=== PATIENT | male | born 1955 | race Caucasian/White ===

== ENCOUNTER 2017-09-29 03:08 | Inpatient (IN) | payer BC ==
[~2017-09-29] VITALS: Ht 180.3 cm; Wt 81.6 kg
[2017-09-29] MEDS ORDERED: DABI75CA3 PO (03:29)
[2017-09-29] MEDS ORDERED: TESTOSTERONE GEL TOP (03:29)
[2017-09-29] MEDS ORDERED: NITROGLYCERIN 0.4 MG/TAB BOTTLE SL ONE ×2 (03:30→03:34)
[2017-09-29] MEDS ORDERED: PANTOPRAZOLE SODIUM 40 MG VIAL IV ONE (03:30)
[2017-09-29] MEDS ORDERED: PANTOPRAZOLE SODIUM 40 MG VIAL ONE (03:34)
[2017-09-29 03:51] LABS: BASOPHILS # (AUTO) 0.1 K/uL (0.0-8.0); BASOPHILS % (AUTO) 1.1 % (0.0-2.0); EOSINOPHILS # (AUTO) 0.1 K/uL (0.0-0.7); EOSINOPHILS % (AUTO) 1.4 % (0.0-7.0); HEMATOCRIT 44.7 % (36.7-47.1); HEMOGLOBIN 15.2 g/dL (12.5-16.3); LYMPHOCYTES # (AUTO) 1.6 K/uL (20.0-40.0); LYMPHOCYTES % (AUTO) 25.8 % (20.5-51.5); MEAN CORPUSCULAR HEMOGLOBIN 31.8 uug (23.8-33.4); MEAN CORPUSCULAR HGB CONC 34 g/dL (32.5-36.3); MEAN CORPUSCULAR VOLUME 93.4 fL (73.0-96.2); MONOCYTES # (AUTO) 0.7 K/uL (2.0-10.0); MONOCYTES % (AUTO) 10.7 % (0.0-11.0); NEUTROPHILS # (AUTO) 3.8 K/uL (1.8-8.9); PLATELET COUNT (AUTO) 182 K/uL (152-348); RED BLOOD CELL COUNT(AUTO) 4.78 MIL/uL (4.06-5.63); WHITE BLOOD COUNT (AUTO) 6.2 K/uL (3.6-10.2)
[2017-09-29] MEDS ORDERED: IV NORMAL SALINE 250 ML BAG IV ONE (04:00)
[2017-09-29 04:16] LABS: BILIRUBIN,DIRECT 0.1 mg/dL (0.0-0.2); BILIRUBIN,TOTAL 0.6 mg/dL (0.2-1.0); TOTAL PROTEIN, SERUM 6.3 g/dL (6.4-8.2)
--- NOTE | 2017-09-29 05:00 | NUR ---
PATIENT DOES NOT RECALL DOSAGES OF MEDICATION TAKING AT HOME. PATIENT WILL CALL LATER TODAY TO OBTAIN DOSAGES OF MEDICATION
--- NOTE | 2017-09-29 05:06 | NUR ---
DR. GRAFF TALKING TO NELSON MACDONALD NP
--- NOTE | 2017-09-29 05:57 | NUR ---
Pt. admitted to [facility] , under care of Holland Buck NP. Belongs List completed. Report given to Cheyenne NEWTON
[2017-09-29 06:15] VITALS: BP 101/63
[2017-09-29] MEDS ORDERED: ZOLPIDEM 5 MG TABLET PO PRN (06:15)
[2017-09-29] MEDS ORDERED: MAGNESIUM HYDROXIDE 30 ML LIQUID UDC PO PRN (06:15)
[2017-09-29] MEDS ORDERED: ACETAMINOPHEN 325 MG TABLET PO PRN (06:15)
[2017-09-29] MEDS ORDERED: MORPHINE SULFATE 2 MG/1 ML DISP.SYRIN IV PRN (06:15)
[2017-09-29] MEDS ORDERED: NITROGLYCERIN 0.4 MG/TAB BOTTLE SL PRN (06:15)
[2017-09-29] MEDS ORDERED: ONDANSETRON 4 MG/2 ML VIAL IV PRN (06:15)
[2017-09-29] MEDS ORDERED: HYDROCODONE/APAP 5-325MG TABLET PO PRN (06:15)
--- NOTE | 2017-09-29 06:15 | NUR ---
Received pt from ER accompanied by ER nurse Sarah and pt Brandi via wheelchair. Patient AAOX4. Denies any chest pain at this time. No SOB. VS WNL. O2 sat at 98% on RA. In no acute distress. Sinus Isaiah on tele at 60/min. IV site on left hand intact and patent. Safety measure initiated and call purvis within reach.
[2017-09-29] MEDS ORDERED: PANTOPRAZOLE SODIUM 40 MG TABLET.DR PO SCH (07:00)
--- NOTE | 2017-09-29 07:15 | NUR ---
Protonix PO not given at 0700. Patient was given Protonix IV 40mg at ER around 0354.
--- NOTE | 2017-09-29 08:25 | NUR ---
SEEN BY DR TREVIZO SEE NOTES
[2017-09-29] MEDS ORDERED: ASPIRIN 81 MG TAB.CHEW PO SCH (09:00)
--- NOTE | 2017-09-29 09:40 | NUR ---
REFUSED ASA "I AM TAKING PRADAXA AND MY PCP ADVISED NOT TO TAKE ASA ANYMORE." WILL FOLLOW-UP WITH
--- NOTE | 2017-09-29 14:26 | NUR ---
STILL AWAITING CARDIOLOGY CONSULT
--- NOTE | 2017-09-29 14:26 | NUR ---
RD visited pt for nutrition education on Consistent CHO, Cardiac diet. Pt reported he has no hx of DM. Glucose WNL. Recommend change diet to Cardiac diet. Addendum: 09/29/17 at [address] Amended: Links added.
--- NOTE | 2017-09-29 15:29 | NUR ---
SEEN BY DR GONSALEZ SAID CLEAR TO DISCHARGE
--- NOTE | 2017-09-29 15:30 | NUR ---
DISCHARGE HOME STABLE WITH FOLLOW-UP INSTRUCTION WITH PCP.
== END 2017-09-29 15:30 | disposition home or self-care (01) | DRG 392 ==
LOC: ER 03:13 → TELE 05:50
PROVIDERS: ADMIT Nurse Practitioner Acute Care; ATTEND Internal Medicine
DX: K21.9 Gastro-esophageal reflux disease without esophagitis (principal); D68.59 Other primary thrombophilia; Z79.01 Long term (current) use of anticoagulants; Z86.718 Personal history of other venous thrombosis and embolism; Z86.711 Personal history of pulmonary embolism; Z96.652 Presence of left artificial knee joint; Z82.49 Family history of ischemic heart disease and other diseases of the circulatory system
CPT/HCPCS: 36415; 70030-TC; 71045; 85025; 85730; 93005; 93307; A4663; C9113; J7050